=== PATIENT | male | born 1955 | race Caucasian/White ===

== ENCOUNTER 2023-09-12 00:05 | Emergency (ER) | payer SELFPAY ==
[~2023-09-12] VITALS: Ht 180.3 cm; Wt 104.3 kg
[2023-09-12 00:13] VITALS: BP_SYST 165; PULSE 88; RESP 18; TEMP 97.6; O2SAT 96
[2023-09-12] MEDS ORDERED: RACEPINEPHRINE HCL 0.5 ML VIAL.NEB INH ONE (00:16)
[2023-09-12] MEDS: DEXAMETHASONE SOD PHOSPHATE 10 MG/ML VIAL IVP ONE (00:22)
[2023-09-12] MEDS: DIPHENHYDRAMINE INJ 50 MG/ML VIAL IVP ONE (00:22)
[2023-09-12] MEDS: RACEPINEPHRINE HCL 0.5 ML VIAL.NEB INH ONE (00:37)
[2023-09-12] MEDS ORDERED: EPINEPHRINE HCL/PF 1 MG/ML AMP ONE (00:40)
[2023-09-12] MEDS: EPINEPHrine HCL 1 MG/ML VIAL SUBCUT ONE (00:42)
[2023-09-12 00:48] LABS: BASOPHILS # (AUTO) 0.1 K/uL (0.0-0.2); EOSINOPHILS # (AUTO) 0.2 K/uL (0.0-0.4); EOSINOPHILS % (AUTO) 1.7 % (0.0-4.0); HEMATOCRIT 41.6 % (36-54); HEMOGLOBIN 14.4 g/dL (14.0-18.0); LYMPHOCYTES # (AUTO) 2.8 K/uL (1.0-5.5); LYMPHOCYTES % (AUTO) 28.6 % (20.5-51.5); MEAN CORPUSCULAR HEMOGLOBIN 31 pg (27-31); MEAN CORPUSCULAR HGB CONC 35 % (32-36); MEAN CORPUSCULAR VOLUME 89 fL (79.0-98.0); NEUTROPHILS # (AUTO) 5.7 K/uL (1.8-7.7); NEUTROPHILS % (AUTO) 58.7 % (40.0-70.0); PLATELET COUNT (AUTO) 335 K/uL (130-430); RED BLOOD CELL COUNT(AUTO) 4.68 MIL/uL (4.2-6.2); RED CELL DISTRIBUTION WIDTH 14.3 % (9.0-15.0); WHITE BLOOD COUNT (AUTO) 9.7 K/uL (4.8-10.8)
[2023-09-12] MEDS: LORazepam 2 MG/ML VIAL IVP ONE (01:20)
[2023-09-12] MEDS: FAMOTIDINE PF 20 MG/2 ML VIAL IVP ONE (01:21)
[2023-09-12] MEDS: NACL 0.9% 1,000 ML IV ONE (01:22)
[2023-09-12 01:26] LABS: CALCIUM 9.3 mg/dL (8.4-11.0); CREATININE 1.06 mg/dL (0.55-1.30); POTASSIUM 3.5 mmol/L (3.5-5.1)
[2023-09-12] MEDS ORDERED: OMEP40CA20 PO (05:21)
[2023-09-12] MEDS ORDERED: PRED20TA PO (05:21)
[2023-09-12] MEDS ORDERED: DIPH25CA83 PO (05:21)
[2023-09-12 06:40] VITALS: BP_SYST 136; PULSE 90; RESP 22; TEMP 97.8; O2SAT 95
== END 2023-09-12 07:20 | disposition home or self-care (01) ==
LOC: SED 00:05
DX: J38.5 Laryngeal spasm (principal); R20.2 Paresthesia of skin
CPT/HCPCS: 99291; 96361; 96374; 70491; 96375; 71045; 80048; 85025; 36415; 94640; 96372; J1100; J1200; J0171; J3490; J2060; Q9967; J7030